=== PATIENT | female | born 1935 | race Caucasian/White ===

== ENCOUNTER → 2017-03-10 | Outpatient (CLI) | payer OTHER | LOC: FCPNEURO 23:11 | PROVIDERS: ATTEND Psychiatry & Neurology Sleep Medicine | DX: G47.31 Primary central sleep apnea (principal); G47.33 Obstructive sleep apnea (adult) (pediatric) ==

== ENCOUNTER 2018-04-22 16:44 | Emergency (ER) | payer OTHER ==
[2018-04-22 16:52] VITALS: BP 163/96
--- NOTE | 2018-04-22 17:01 | EDPHY ---
H & P Time Seen by Provider: 04/22/18 16:54 HPI/ROS: CHIEF COMPLAINT: Right wrist pain post mechanical fall on ice HISTORY OF PRESENT ILLNESS: 82-year-old female complaining acute are wrist pain. Patient is right-hand dominant, was over walk, slipped on ice landing on outstretched right hand. She is complaining of acute pain to the right wrist with no paresthesia, no proximal pain or injury. No head injury. No chest pain or injury. No back pain injury. This was a mechanical episode with no syncope. No prolonged periods of immobility on the ground. PRIMARY CARE PROVIDER: Chip REVIEW OF SYSTEMS: 10 systems reviewed and negative with the exception of the elements mentioned in the history of present illness PAST MEDICAL/SURGICAL HISTORY: no anticoagulant use, no relevant medical/ surgical history SOCIAL HISTORY: denies alcohol use at time of incident PHYSICAL EXAM 1) GENERAL: Well-developed, well-nourished, alert and oriented. Answering questions appropriately. 2) HEAD: Normocephalic, atraumatic 3) HEENT: Pupils equal, round, reactive to light bilaterally. Negative Horners. Nasopharynx, oropharynx, clear. No deformity or angulation of nose. No septal hematoma. No rhinorrhea. No oral trauma. Ears bilaterally with normal tympanic membranes. No hemotympanum. No fluid or blood in the external auditory canal. No raccoon eyes. No Loza sign. Teeth are normally aligned with no gross malocclusion, TMJ bilaterally nontender, facial bones nontender including the zygomatic arch, maxilla mandible. 4) NECK: No cervical collar is on. Posterior cervical spine is nontender, no stepoff, no effusion. Full range of motion which does not elicit any midline cervical spine pain, no posterior midline tenderness, no step-off. 5) LUNGS: Clear to auscultation bilaterally, no wheezes, no rhonchi, no retractions. No obvious signs of trauma. No chest wall pain. No flaring, no grunting. Moving symmetrically. No crepitus. 6) HEART: Regular rate and rhythm, 7) ABDOMEN: No guarding, no rebound, no focal tenderness, no peritoneal signs, no signs of trauma, no ecchymosis 8) MUSCULOSKELETAL: Right upper extremity: Tender to palpation right wrist with noted dorsal deformity. Intact skin. Radial ulnar median nerve function intact. Soft compartments. Proximally nontender including shoulder and humeral neck. Otherwise, Moving all extremities, no focal areas of tenderness , no obvious trauma. Observed ambulating without assistance with stable steady gait. 9) BACK: No midline vertebral tenderness, no fluctuance, no step-off, no obvious trauma, no visual or palpable abnormality. 10) SKIN: No laceration. No abrasion DIFFERENTIAL DIAGNOSIS: In no particular order including but not limited to fracture, sprain, strain, dislocation Smoking Status: Never smoked Constitutional: Initial Vital Signs Temperature (C) 36.4 C 04/22/18 16:49 Heart Rate 81 04/22/18 16:49 Respiratory Rate 18 04/22/18 16:49 Blood Pressure 163/96 H 04/22/18 16:49 O2 Sat (%) 93 04/22/18 16:49 O2 Delivery Mode Room Air Allergies/Adverse Reactions: No Known Allergies Allergy (Verified 04/22/18 16:48) Home Medications: Medication Instructions Recorded Levothyroxine [Synthroid 50 mcg 50 mcg PO DAILY@06 #30 tab 07/13/15 (*)] oxyCODONE/APAP 5/325 [Percocet 1 tab PO Q6 #7 tab 04/22/18 5/325] MDM/Departure - MDM Imaging Results: Imaging Impressions Wrist X-Ray 04/22/18 16:53 Impression: 1. Complex Colles' fracture with an intra-articular component and slight dorsal angulation of the distal radius. 2. Suspect osteoporosis. This patient might benefit from a DEXA scan. Images reviewed myself Procedures: Procedure: Splint A sugar-tong Orthoglass splint and sling was applied by ER er medical technician. After application of the splint I returned and re-examined the patient. The splint was adequately immobilizing the joint and distal to the splint the patient's circulation and sensation were intact. Patient shows no signs of compartment syndrome. Was given orthopedic precautions. ED Course/Re-evaluation: 5:15 p.m.: Re-evaluation, discussed her imaging results. She is neurovascularly intact. I discussed the intra-articular component of her fracture. Informed her that she may necessitate ORIF, non emergently. She has been splinted in the ER, given analgesia, given my usual and customary orthopedic precautions instructions. Given referral to on-call orthopedics. She feels , comfortable being discharged. Care of patient under supervision of secondary supervising physician Dr Figueroa . - Depart Disposition: Home, Routine, Self-Care Clinical Impression: Right wrist fracture Qualifiers: Encounter type: initial encounter Fracture type: closed Qualified Code(s): S62.101A - Fracture of unspecified carpal bone, right wrist, initial encounter for closed fracture Fall from slipping on ice Qualifiers: Encounter type: initial encounter Qualified Code(s): W00.9XXA - Unspecified fall due to ice and snow, initial encounter Condition: Good Instructions: Wrist Fracture in Adults (ED) Additional Instructions: Return to the ER immediately if you experience discoloration, have worsening pain, numbness, tingling, or any other symptoms that concern you. If you received x-rays in the emergency department today, be advised, that ligamentous , tendon, muscular, and other non-bony injury cannot be fully ruled out. Try to keep your affected extremity elevated above the level of your chest, and keep cold packs on the affected area, for the next 48 hours. Prescriptions: oxyCODONE/APAP 325 [Percocet ] 1 tab PO Q6 #7 tab Referrals: Choco Burleson MD [Medical Doctor] - 2-3 days, call for appt. (Dr. Choco Burleson is an orthopedic surgeon)
== END 2018-04-22 17:39 | disposition home or self-care (01) ==
PROC: 2W3CX1Z Immobilization of Right Lower Arm using Splint (ICD-10-PCS; principal; 2018-04-22)
DX: S62.101A Fracture of unspecified carpal bone, right wrist, initial encounter for closed fracture (principal); W00.0XXA Fall on same level due to ice and snow, initial encounter; Y92.9 Unspecified place or not applicable; Y93.9 Activity, unspecified; Y99.9 Unspecified external cause status